=== PATIENT | female | born 1965 | race Two or more races ===

== ENCOUNTER 2023-07-23 06:49 | Day surgery (SDC) | payer OTHER ==
[~2023-07-23] VITALS: Ht 160 cm; Wt 77.1 kg
[~2023-07-23 06:49] MED LIST: B12 ACTIVE1000 MCG PO; CARAFATE1 GM PO; D3-5000125 MCG PO; LIPITOR20 MG PO; METFORMIN HCL500 M1 PO; NORVASC5 MG PO; OMEPRAZOLE20 MG PO; ZESTRIL20 MG PO
[2023-07-23] MEDS ORDERED: PERCOCET 5-3251 EACH PO (14:58)
== END 2023-07-23 16:35 | disposition home or self-care (01) ==
LOC: CIR.AMB 06:49
PROVIDERS: ATTEND Surgery
DX: D35.1 Benign neoplasm of parathyroid gland (principal); E21.0 Primary hyperparathyroidism; Z20.822 Contact with and (suspected) exposure to COVID-19; Z88.2 Allergy status to sulfonamides; Z88.6 Allergy status to analgesic agent